=== PATIENT | male | born 1990 | race Caucasian/White ===

== ENCOUNTER 2022-05-04 03:38 | Emergency (ER) | payer SELFPAY ==
[~2022-05-04] VITALS: Ht 177.8 cm; Wt 74.8 kg
--- NOTE | 2022-05-04 03:40 | NUR ---
PT [facility] BLS. TAKEN TO BED 7
--- NOTE | 2022-05-04 03:50 | NUR ---
PT A&O X2. UNABLE TO TO RECALL DATE AND DAY. UNABLE TO HOLD A CONVERSATION. PT SEEMS TO BE CONFUSED AND DROWSY. ABRASION TO RIGHT SIDE OF THE FACE.
[2022-05-04 03:51] VITALS: BP 106/63
[2022-05-04] MEDS ORDERED: NACL 0.9% 2,000 ML IV ONE (03:55)
[2022-05-04 04:11] LABS: BASOPHILS % (AUTO) 0.4 % (0.0-2.0); EOSINOPHILS # (AUTO) 0.1 K/uL (0-0.4); EOSINOPHILS % (AUTO) 1.4 % (0.0-4.0); HEMATOCRIT 43.7 % (36-52); HEMOGLOBIN 15.2 g/dL (12.0-18.0); LYMPHOCYTES # (AUTO) 2.1 K/uL (2.0-11.5); LYMPHOCYTES % (AUTO) 22.9 % (20.5-51.1); MEAN CORPUSCULAR HEMOGLOBIN 31 pg (27-31); MEAN CORPUSCULAR HGB CONC 35 g/dL (33-37); MEAN CORPUSCULAR VOLUME 87.9 fL (80-94); MONOCYTES # (AUTO) 0.5 K/uL (0.8-1.0); MONOCYTES % (AUTO) 5.4 % (1.7-9.3); NEUTROPHILS # (AUTO) 6.4 K/uL (1.8-7.7); NEUTROPHILS % (AUTO) 69.9 % (42.2-75.2); PLATELET COUNT (AUTO) 451 K/uL (140-450); RED BLOOD CELL COUNT(AUTO) 4.97 MIL/uL (4.20-6.10); RED CELL DISTRIBUTION WIDTH 13.1 % (11.6-13.7); WHITE BLOOD COUNT (AUTO) 9.2 K/uL (4.8-10.8)
--- NOTE | 2022-05-04 04:24 | NUR ---
PT RETURN FROM RADIOLOGY
[2022-05-04 04:39] LABS: ALBUMIN 4.2 g/dL (3.4-5.0); ANION GAP 21.9 (8-16); ASPARTATE AMINOTRANSFERASE 39 U/L (15-37); CARBON DIOXIDE 20.7 mmol/L (21-32); CHLORIDE 101 mmol/L (98-107); CREATININE 1.3 mg/dL (0.6-1.3); GFR ARICAN-AMERICAN 82 mL/min (>90); GLUCOSE 116 mg/dL (74-106); POTASSIUM 3.6 mmol/L (3.5-5.1); SODIUM SERUM 140 mmol/L (136-145); TOTAL BILIRUBIN 0.5 mg/dL (0.0-1.0); UREA NITROGEN, BLOOD 17 mg/dL (7-18)
[2022-05-04 04:41] LABS: SALICYLATE < 2.8 mg/dL (2.8-20.0)
--- NOTE | 2022-05-04 04:53 | NUR ---
URINE COLLECTED AND WALKED TO LAB
--- NOTE | 2022-05-04 04:54 | NUR ---
IV ESTABLISHED 18G RIGHT FA
[2022-05-04 05:15] LABS: APPEARANCE,URINE CLEAR (CLEAR); BILIRUBIN,URINE NEGATIVE (NEGATIVE); BLOOD, URINE 1+ (NEGATIVE); COLOR,URINE YELLOW (YELLOW); LEUKOCYTE ESTERASE ,URINE NEGATIVE (NEGATIVE); NITRITE, URINE NEGATIVE (NEGATIVE); UGLUCOSE NEGATIVE (NEGATIVE)
[2022-05-04 05:21] LABS: RBC,URINE >20 (MANY) /HPF (0-5)
[2022-05-04 05:26] LABS: BARBITURATE, URINE NEGATIVE ng/ml (NEG <=200); BENZODIAZEPINE, URINE NEGATIVE ng/mL (NEG <=200); CANNABINOID, URINE POSITIVE ng/mL (NEG <=50); COCAINE, URINE POSITIVE ng/mL (NEG <=300); OPIATE, URINE NEGATIVE ng/mL (NEG <=2000); PHENCYCLIDINE SCREEN,URINE NEGATIVE ng/mL (NEG <=25)
--- NOTE | 2022-05-04 05:39 | NUR ---
PT AMBULATES TO BATHROOM WITHOUT ASSISTANCE
[2022-05-04 05:42] LABS: ACETAMINOPHEN < 0.5 ug/ml (10-30)
[2022-05-04] MEDS ORDERED: cefTRIAXone 1,000 MG VIAL ONE (06:06)
--- NOTE | 2022-05-04 06:40 | NUR ---
MD BOWENS AT BEDSIDE
[2022-05-04 07:15] VITALS: BP 117/70
== END 2022-05-04 07:41 | disposition home or self-care (01) ==
LOC: MED 03:38
DX: R41.82 Altered mental status, unspecified (principal); N39.0 Urinary tract infection, site not specified
CPT/HCPCS: 36415; 70450; 71045; 80053; 80305; 81001; 85025; 87086; 96361; 96365; 99285; G0480; G0482; J0696; Q0092; J7030